=== PATIENT | male | born 1995 | race Caucasian/White ===

== ENCOUNTER 2021-12-24 15:50 | Outpatient (CLI) | payer OTHER ==
[2021-12-24 16:25] VITALS: BP 136/82
--- NOTE | 2021-12-24 16:25 | SLEEP CARE CONSULTATION ---
Information from patient questionnaire entered by Jenni Daniels. I have reviewed and concur with the information entered by Jenni Daniels. This document represents the service I personally performed and the decisions made by me, Lisa Orr ARNP. History of Present Illness Service Date and Time: 12/24/2021 1550 Reason for Visit: New patient Chief Complaint: reports: Unrefreshed sleep, Snoring, Observed pauses in breathing Date of Onset: AT LEAST 4 YEARS Usual bedtime: 11PM Time it takes to fall asleep: 30 MINUTES TO 3 HOURS Snores at night: Yes Observed to quit breathing while asleep: Yes Sleeps alone due to snoring: Yes Number of times waking at night: SELDOM Reasons for waking at night: reports: Gasping for air, Other (ACID REFLUX ). denies: Choking, Snoring Toss, Turn, or Twitch while sleeping: Yes Recalls having dreams: No Usually gets out of bed at: 6 Feels refreshed in the morning: No Morning headache: No Sleepy or fatigued during the day: Yes (first half of the day) Ever fallen asleep while driving: No Takes day naps: No Dreams during day naps: No Prior sleep studies: No Additional HPI information: I had the pleasure of seeing SHIMA CHAPA today regarding the possibility of him having a sleep disorder. His current complaints are snoring, unrefreshed sleep and observed pauses in breathing. He has been getting complaints from his and others about loud snoring. He is sleeping separate because of snoring. He has also been told he has pauses in breathing. He does not wake up feeling refreshed and is tired through the morning. He feels like he wakes up in the afternoon. He has woke up occasionally at night with acid reflux and gasping for air. He denies drowsy driving. 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 Patient is Single and lives in . Have you smoked in the past 12 months: No (uses salt pouches with nicotine in them) Cigarettes per day (20/pack): 5 Years of smokin Quit date: MAR 2020 Smoking Pack Years: 0.4 Alcohol use: Yes Alcohol amount and frequency: 1-2 DRINKS WEEKLY Caffeine use: Yes Caffeine amount and frequency: 1-2 ENERGY DRINKS DAILY Family History Family history of sleep disordered breathing: Yes Family Hx Sleep Apnea: Mother: Snoring, Father: Snoring, Sleep apnea - Untreated Allergies and Home Medications Known drug allergies: No Drug allergies reviewed: Yes (NKDA) Home medication list reviewed: Yes (no daily medications or supplements) Review of Systems Weight gain over past 5 years: 30 Gastrointestinal: reports: heartburn (occasional) Neurological: denies: head trauma Psychiatric: reports: depression. denies: anxiety Ear/Nose/Throat: reports: nasal congestion, sinus problems, wisdom teeth removed. denies: injury to nose, tonsillectomy Musculoskeletal: reports: back pain Immunologic: denies: allergies to food or environment Physical Exam Vital signs obtained and entered by: RAM MA Blood Pressure: 136/82 (left arm ) Cuff size: regular Heart Rate: 87 O2 Saturation: 97 Height: 6 ft Weight: 266 lb Body Mass Index: 36.1 BMI Classification: Obese Neck circumference: 18 (inches) Mouth and throat: narrow oropharynx Soft palate: normal Hard palate: normal Uvula: normal Uvula visualization: 50% Mallampati Class II Tongue: enlarged in size with teeth campos on lateral edges Tonsils: small Neck: normal w/o lymphadenopathy or thyromegaly Heart: regular rate and rhythm Lungs: clear bilaterally Impression and Plan 1. Suspected Obstructive Sleep Apnea-Hypopnea Syndrome, as suggested by a history of loud and irregular snoring, observed cessation of breath while asleep, gasping or choking in sleep, unrefreshed sleep, and excessive daytime sleepiness. Narrow oropharynx and obesity are common predisposing factors for obstructive sleep apnea-hypopnea syndrome. I recommend proceeding to polysomnography to confirm the diagnosis and to assess severity. If the patient has significant sleep disordered breathing, a manual CPAP titration study will also be performed to find the optimal treatment pressure. I informed the patient of what the sleep studies involve and after some discussion, obtained agreement to proceed. The pathophysiology of obstructive sleep apnea-hypopnea syndrome was discussed with the patient and health risks of cardiovascular and cerebrovascular disease if not treated. Risks of drowsy driving discussed in detail and patient advised to avoid long distance driving and to tap puller at the first sign of drowsiness. Patient agreed to plan. * Schedule polysomnography * Avoid long distance driving or driving when feeling sleepy. * Avoid alcohol, sedative and muscle relaxant around bedtime. * Attempt to lose weight. * Review instructions provided by trained office staff on how to prepare for the sleep study. * Return for follow-up after sleep study completed. Counseling Topics: Weight loss health impact Visit Type: In Office Time Spent with Patient (minutes): 23 Provider Statement: I spent 100% of the Face to Face Visit with the patient with greater than 50% spent counseling the patient and coordination of care.
== END 2021-12-24 15:51 | disposition home or self-care (01) ==
LOC: SC 15:50
PROVIDERS: ATTEND Nurse Practitioner Family
DX: R06.83 Snoring (principal); G47.8 Other sleep disorders; R06.81 Apnea, not elsewhere classified; G47.10 Hypersomnia, unspecified; R53.83 Other fatigue; E66.9 Obesity, unspecified; Z68.36 Body mass index [BMI] 36.0-36.9, adult; Z87.891 Personal history of nicotine dependence
CPT/HCPCS: 99202; 99212

== ENCOUNTER 2022-02-12 15:50 | Outpatient (CLI) | payer OTHER ==
[2022-02-12 16:10] VITALS: BP 140/86
--- NOTE | 2022-02-12 16:10 | SLEEP CARE CONSULTATION ---
Information from patient questionnaire entered by Juanis Valle. I have reviewed and concur with the information entered by Juanis Valle. This document represents the service I personally performed and the decisions made by me, Lisa Orr ARNP. History of Present Illness Service Date and Time: 02/12/2022 1550 Initial [place] Sleepiness Scale score: 7 (12/06/21) Current [place] Sleepiness Scale score: 10 (02/12/2022) Additional HPI information: SHIMA CHAPA returns for follow up and results of the recently performed home sleep study. I explained the pathophysiology behind obstructive sleep apnea. We then spent quite a bit of time discussing different treatment options. For mild obstructive sleep apnea, surgery and oral appliance are alternatives to nasal CPAP therapy but in moderate or severe cases, nasal CPAP is the most effective and reliable treatment. I reviewed the impact of weight changes on sleep apnea and strongly recommended losing weight. After some discussion, the patient opted to go with the nasal CPAP therapy. Nasal autoCPAP set at 4-15 cmH20 will be ordered with rationale explained. A manual titration study will be ordered if unable to find optimal pressure with office adjustments. I explained how CPAP machine works and what to expect when using the machine. Using CPAP every night in order to get used to it was emphasized. Patient advised to put CPAP mask on before getting into bed so as not to fall asleep without CPAP. To assist acclimation to CPAP use, it could also be used for a short time during day while reading or watching TV. The patient was instructed to call the CPAP supplier to discuss any mechanical problem that may occur. If the mask given is uncomfortable or is difficult to keep on through the night even with adjustment, contact the CPAP supplier as many will replace with another mask style if notified before 30 days. If snoring or perceives is not getting enough air or too much air from the machine, notify this office. Patient counseled not drink alcohol less than 4 hours before bedtime as it can increase snoring and apnea. Patient was cautioned about risks of drowsy driving until sleepiness symptoms resolve. Patient denies drowsy driving. Sleep Study - Results Type of Sleep Study: Home sleep study (COMPLETED 01/19/2022) Prior sleep studies: No Polysomnography/Home Sleep Study results: Physician Impression: The quality of the study is fair due to partial loss of pulse oximetry signal. The length of the study is adequate (> 240 minutes). Please also see the tabulated and graphic data. 1. Obstructive Sleep Apnea-Hypopnea (ICD-10 G47.33), mild, with an AHI of 8.8/hr and alpesh SaO2 of 88%. During the study, the patient had 3 apneas (3 obstructive, 0 central, 0 mixed) and 26 hypopneas. The longest episode lasted 90.0 seconds. The respiratory events occurred more frequently during nonsupine sleep (supine AHI was 2.1 and non-supine, 13.71). 2. Hypoxemia (ICD-10 R09.02), mild, with the lowest oxygen saturation of 88 % and 32.4 minutes with SaO2 under 90%. Baseline oxygen saturation was normal (Average oxygen saturation was 92%). Allergies and Home Medications Drug allergies reviewed: Yes (NKDA) Home medication list reviewed: Yes (no changes) Review of Systems Review of systems same as previous: Yes (no changes) Physical Exam Vital signs obtained and entered by: JUANIS Celaya MA Blood Pressure: 140/86 (left arm) Cuff size: regular Heart Rate: 82 O2 Saturation: 97 Height: 6 ft Weight: 268 lb 3.2 oz Body Mass Index: 36.3 BMI Classification: Obese Impression and Plan 1. Obstructive Sleep Apnea-Hypopnea Syndrome, mild, with lowest oxygen saturation of 88%. Obviously this is the cause of the patients symptoms of unrefreshed sleep, and excessive daytime sleepiness. Positive pressure therapy could benefit depression. As mentioned above, the patient will be started on nasal autoCPAP therapy with pressure set at 4-15 cmH2O. Compliance guidelines also reviewed. A copy of compliance guidelines will be given for reference at check out. 2. Hypoxemia, mild, with the lowest oxygen saturation of 88 % and 32.4 minutes with SaO2 under 90%. His baseline oxygen saturation was normal with an average oxygen saturation of 92%. 2. Obesity, unspecified. Currently patients BMI is 36.3. Obesity increases the risk of apnea, CPAP pressure requirements and overall health risks especially cardiovascular and diabetes. Thus patient is advised to lose weight. * Nasal auto CPAP therapy, pressure at 4-15 cm H2O. * Attempt to lose weight. * Avoid alcohol consumption near bedtime. * Avoid supine sleep until using CPAP. * The patient is again cautioned about driving until sleepiness completely resolves. * Return one month after CPAP obtained. I will assess response to therapy and compliance at that time. Counseling Topics: Weight loss health impact Visit Type: In Office Time Spent with Patient (minutes): 21 Provider Statement: I spent 100% of the Face to Face Visit with the patient with greater than 50% spent counseling the patient and coordination of care.
== END 2022-02-12 15:51 | disposition home or self-care (01) ==
LOC: SC 15:50
PROVIDERS: ATTEND Nurse Practitioner Family
DX: G47.33 Obstructive sleep apnea (adult) (pediatric) (principal); R09.02 Hypoxemia; E66.9 Obesity, unspecified; Z68.36 Body mass index [BMI] 36.0-36.9, adult
CPT/HCPCS: 99212; 99213

== ENCOUNTER 2022-04-16 14:44 | Outpatient (CLI) | payer OTHER ==
[2022-04-16 15:08] VITALS: BP 146/86
--- NOTE | 2022-04-16 15:08 | SLEEP CARE CONSULTATION ---
Information from patient questionnaire entered by Juanis Valle. I have reviewed and concur with the information entered by Juanis Valle. This document represents the service I personally performed and the decisions made by me, Lisa Orr ARNP. History of Present Illness Service Date and Time: 04/16/2022 1444 Previous diagnosis: Mild, Obstructive Sleep Apnea-Hypopnea Syndrome AHI: 8.8 (in 2021) Reason for follow up: first compliance (SET UP 03/01/22) Equipment type: CPAP (RESMED) Equipment obtained from: Other ([facility]; getting supplies) Mask style: Full face Mask brand: [employer] (Teressa) Backup mask available: Yes (other mask) Last cushion change: 1 week Prior sleep studies: No Type of Sleep Study: Home sleep study (COMPLETED 01/19/2022) HPI additional information: SHIMA CHAPA was diagnosed to have mild, AHI 8.8, obstructive sleep apnea- hypopnea syndrome and returned today for CPAP therapy first compliance follow- up. Sleep Study - Results Type of Sleep Study: Home sleep study (COMPLETED 01/19/2022) Prior sleep studies: No CPAP Compliance Data - Data Reviewed with Patient Average duration of nightly device use: 5 hours 2 minutes Compliance rate %: 87 (44/45 days used) Current pressure setting (cmH2O): 4-15 (median 8.6, avg 11.9, max 13.2) Average residual AHI: 3.2 Central apnea: 0.5 Obstructive apnea: 1.3 Subjective Patient concerns: reports: mask discomfort, dry mouth, nose, throat (dry nose). denies: aerophagia, air blowing in eyes, mask leak noise, condensation in mask/hose, nasal congestion, epistaxis Observed to snore while using device: No Current pressure setting perceived as: comfortable On therapy, patient: reports: sleeping better, awakening more refreshed, being more awake and alert during the day, more rested overall. denies: drowsiness while driving Initial [place] Sleepiness Scale score: 7 (12/06/21) Current [place] Sleepiness Scale score: 8 (04/16/22) Allergies and Home Medications Drug allergies reviewed: Yes (NKDA) Home medication list reviewed: Yes (no changes) Review of Systems Review of systems same as previous: Yes (no changes) Physical Exam Vital signs obtained and entered by: JUANIS Celaya MA Blood Pressure: 146/86 (LEFT ARM) Cuff size: regular Heart Rate: 87 O2 Saturation: 98 Height: 6 ft Weight: 268 lb 12.8 oz Body Mass Index: 36.4 BMI Classification: Obese Impression and Plan 1. Obstructive Sleep Apnea-Hypopnea Syndrome, mild, with good treatment compliance and good apnea control. On CPAP therapy, the patient has better sleep quality and is more rested overall. The patients pressure will be changed to autoCPAP 11-14 cmH20 to reflect pressure being used. Patient advised to contact me if pressure change is uncomfortable so that it can be adjusted. Goals for apnea control discussed. Patient using a [employer] Teressa full face mask. He did try a full face mask with tubing connection at top of head but did not like this better and had more events noted on his machine. He has gone back to Teressa and will continue with this mask. Patient's apnea severity and rationale for treatment to reduce apnea, improve sleep quality and reduce cardiovascular and cerebrovascular events was reviewed. I also reviewed the benefit of consistent device use of CPAP for depression. 2. Obesity, unspecified. Currently patients BMI is 36.4. Obesity increases the risk of apnea, CPAP pressure requirements and overall health risks especially cardiovascular and diabetes. Thus patient is advised to lose weight. * Changeauto CPAP pressure to 11-14 cmH2O * Notify me if snoring with mask or feeling that the pressure is too much or too little * Attempt to lose weight * Call this office if any problems using CPAP * Return for follow up in 1-2 months, or sooner if concerns arise Counseling Topics: Spare mask, Weight loss health impact Visit Type: In Office Time Spent with Patient (minutes): 12 Provider Statement: I spent 100% of the Face to Face Visit with the patient with greater than 50% spent counseling the patient and coordination of care.
== END 2022-04-16 14:45 | disposition home or self-care (01) ==
LOC: SC 14:44
PROVIDERS: ATTEND Nurse Practitioner Family
DX: G47.33 Obstructive sleep apnea (adult) (pediatric) (principal); E66.9 Obesity, unspecified; Z68.36 Body mass index [BMI] 36.0-36.9, adult
CPT/HCPCS: 99212

== ENCOUNTER 2022-06-16 10:02 | Outpatient (CLI) | payer OTHER ==
[2022-06-16 10:28] VITALS: BP 116/74
--- NOTE | 2022-06-16 10:28 | SLEEP CARE CONSULTATION ---
Information from patient questionnaire entered by Juanis Valle. I have reviewed and concur with the information entered by Juanis Valle. This document represents the service I personally performed and the decisions made by , Lisa Orr ARNP. History of Present Illness Service Date and Time: 06/16/2022 1002 Previous diagnosis: Mild, Obstructive Sleep Apnea-Hypopnea Syndrome AHI: 8.8 (in 2021) Reason for follow up: other (2 MONTH F/U ) Equipment type: CPAP (RESMED Airsense 10 s/u 02/2022; SD CARD NEEDED FOR DOWNLOAD AND PRESSURE Changes) Equipment obtained from: Other ([facility]; getting supplies) Mask style: Full face Mask brand: [facility] (Teressa) Backup mask available: Yes (other mask) Last cushion change: Tuesday Prior sleep studies: No Type of Sleep Study: Home sleep study (COMPLETED 01/19/2022) HPI additional information: SHIMA CHAPA was diagnosed to have mild, AHI 8.8, obstructive sleep apnea- hypopnea syndrome and returned today for CPAP therapy two month follow-up. Sleep Study - Results Type of Sleep Study: Home sleep study (COMPLETED 01/19/2022) Prior sleep studies: No CPAP Compliance Data - Data Reviewed with Patient Average duration of nightly device use: 5 hours 41 minutes Compliance rate %: 98 (60/60 days used) Current pressure setting (cmH2O): 4-15 (median 9.6, avg 12.9, 14.2 max) Average residual AHI: 1.6 Central apnea: 0.1 Obstructive apnea: 0.5 Average large leak: 0 Subjective Patient concerns: reports: dry mouth, nose, throat (dry nose). denies: aerophagia, mask discomfort, air blowing in eyes, mask leak noise, condensation in mask/hose, nasal congestion, epistaxis Observed to snore while using device: No Current pressure setting perceived as: comfortable On therapy, patient: reports: sleeping better, awakening more refreshed, being more awake and alert during the day, more rested overall. denies: drowsiness while driving Initial [place] Sleepiness Scale score: 7 (12/06/21) Current [place] Sleepiness Scale score: 9 Allergies and Home Medications Known drug allergies: No Drug allergies reviewed: Yes Home medication list reviewed: Yes (no changes) Review of Systems Review of systems same as previous: Yes (no changes) Physical Exam Vital signs obtained and entered by: JUANIS Celaya MA Blood Pressure: 116/74 (LEFT ARM) Cuff size: regular Heart Rate: 12 O2 Saturation: 98 Height: 6 ft Weight: 278 lb 9.6 oz (boots/clothes) Body Mass Index: 37.8 BMI Classification: Obese Impression and Plan 1. Obstructive Sleep Apnea-Hypopnea Syndrome, mild, with good treatment compliance and good apnea control. On CPAP therapy, the patient has better sleep quality and is more rested overall. Patient's pressure was suppose to be changed at his last visit but this is not reflected in the download of his device. The patients pressure will again be changed to autoCPAP 11-14 cmH20 to reflect pressures being used. Patient advised to contact me if pressure change is uncomfortable so that it can be adjusted. Goals for apnea control discussed. Patient's apnea severity and rationale for treatment to reduce apnea, improve sleep quality and reduce cardiovascular and cerebrovascular events was reviewed. I also reviewed the benefit of consistent device use of CPAP for depression. Patient states he is very comfortable with CPAP use at this time and he has significant improvement of his sleep apnea. He may be leaving area around March of this year. I will set him out for an annual follow up but he may have to do this in his new area if he has moved away. He voiced understanding. 2. Obesity, unspecified. Currently patients BMI is 37.8. Obesity increases the risk of apnea, CPAP pressure requirements and overall health risks especially cardiovascular and diabetes. Thus patient is advised to lose weight. * Change auto CPAP pressure at 11-14 cmH2O * Notify me if snoring with mask or feeling that the pressure is too much or too little * Attempt to lose weight * Call this office if any problems using CPAP * Return for follow up in 1 year, or sooner if concerns arise Counseling Topics: Spare mask, Weight loss health impact Visit Type: In Office Time Spent with Patient (minutes): 20 Provider Statement: I spent 100% of the Face to Face Visit with the patient with greater than 50% spent counseling the patient and coordination of care.
== END 2022-06-16 10:03 | disposition home or self-care (01) ==
LOC: SC 10:02
PROVIDERS: ATTEND Nurse Practitioner Family
DX: G47.33 Obstructive sleep apnea (adult) (pediatric) (principal); E66.9 Obesity, unspecified; Z68.37 Body mass index [BMI] 37.0-37.9, adult
CPT/HCPCS: 99212; 99213